=== PATIENT | female | born 2000 | race African-American/Black ===

== ENCOUNTER 2019-03-26 20:54 | Emergency (ER) | payer MEDICAID ==
[~2019-03-26] VITALS: Ht 157.5 cm; Wt 49.9 kg
[2019-03-26 21:00] VITALS: BP_SYST 137
--- NOTE | 2019-03-26 21:06 | NUR ---
Patient triaged and placed in waiting room. VSS and patient appears in no acute distress at this time. Accompanied by self, awaiting available bed, and MD notified of need for MSE.
--- NOTE | 2019-03-26 23:00 | NUR ---
Rd craig in ED - 03/27/19 at 0516 by [email or web address] ALVARO Alonso at bedside examining patient.
[2019-03-26] MEDS ORDERED: ACETAMINOPHEN 325 MG TABLET PO ONE (23:15)
--- NOTE | 2019-03-26 23:16 | NUR ---
Patient to ER bed 04 for evaluation. Side rails up. Report given to Michaela OLSEN.
--- NOTE | 2019-03-26 23:18 | NUR ---
Pt AAOx4 ambualted into ED c/o cough, congestion, diarrhea, intermittent abd and throat pain, body aches. Temp 99.6F. No meds taken prior to arrival. Skin dry and warm, cough present. No other injuries/complaints per pt/noted. Will continue to monitor.
--- NOTE | 2019-03-26 23:20 | NUR ---
ER at bedside examining patient.
--- NOTE | 2019-03-26 23:25 | NUR ---
Medication administered. Pt tolerated well. No adverse reactions noted.
[2019-03-27] MEDS ORDERED: AMOXICILLIN 500 MG CAPSULE PO ONE (01:00)
[2019-03-27 01:32] VITALS: BP_SYST 137
--- NOTE | 2019-03-27 01:32 | NUR ---
Patient given written and verbal discharge instructions and verbalizes understanding. ER MD Dr. Lawrence discussed with patient the results and treatment provided. Patient in stable condition. ID arm band removed. Rx of amoxicillin and tessalong given. Patient educated on pain management and to follow up with PMD. Pain Scale 0/10. Opportunity for questions provided and answered. Medication side effect fact sheet provided.
== END 2019-03-27 01:32 | disposition home or self-care (01) ==
LOC: SED 20:54
DX: J11.1 Influenza due to unidentified influenza virus with other respiratory manifestations (principal)
CPT/HCPCS: 36415; 71046-TC; 81025; 86710; 99284